=== PATIENT | male | born 1985 | race Two or more races ===

== ENCOUNTER 2024-09-21 13:58 | Outpatient (AMB) | payer MEDICAID, SELFPAY ==
[2024-09-21 14:38] VITALS: BP 123/83; PULSE 76; RESP 18; TEMP 36.6; O2SAT 95; BMI 28.8
--- NOTE | 2024-09-21 14:38 | ACNOTE_ITS ---
Vital Signs 09/21/24 14:38 Height 1.73 m Height Method Stated Weight 86.296 kg Weight Measurement Method Standing Scale BMI 28.8 BP 123/83 Blood Pressure Source Automatic Cuff Blood Pressure Location Left Upper Arm Position Sitting Respiration 18 Pulse 76 Pulse Source Monitor Temp 97.9 F Temp Source Oral Pulse Oximetry (%) 95 Oxygen Delivery Method Room Air Allergies/Meds Allergies & Medications Allergies No Known Allergies Allergy (Verified 09/21/24 14:39) Medication Reconciliation blood-glucose meter (True Metrix Glucose Meter kit) #1 ea 07/13/22 [Rx Confirmed 06/22/24] lancets 32 gauge (Easy Touch Lancets) #100 ea 01/07/24 [Rx Confirmed 06/22/24] pen needle, diabetic 33 gauge x 5/16 (Comfort EZ Pen [place]) #100 ea 01/07/24 [Rx Confirmed 06/22/24] blood-glucose meter,continuous (FreeStyle José 3 [place]) #1 ea 02/04/24 [Rx Confirmed 06/22/24] flash glucose sensor (FreeStyle José 2 Sensor kit) #1 ea 03/03/24 [Rx Confirmed 06/22/24] lancets 28 gauge (Comfort EZ Lancets) #100 ea 03/03/24 [Rx Confirmed 06/22/24] pen needle,diabetic, disp unit 29 gauge x 1/2 , remover and disposal unit #100 ea 03/03/24 [Rx Confirmed 06/22/24] lancets (Accu-Chek Softclix Lancets) #100 ea 04/28/24 [Rx Confirmed 06/22/24] blood sugar diagnostic (True Metrix Glucose Test Strip) #100 ea 06/22/24 [Rx] insulin glargine 100 unit/mL (3 mL) subcutaneous pen (Basaglar KwikPen U-100 Insulin) 15 unit (0.15 mL) subcut QPM diabetes mellitus #15 mL 06/22/24 [Rx] blood-glucose sensor (FreeStyle José 3 Sensor device) #1 ea 09/21/24 [Rx] empagliflozin 25 mg tablet (Jardiance) 25 mg PO QAM 30 days #30 tabs 09/21/24 [Rx] lancets (Accu-Chek Softclix Lancets) #100 ea 09/21/24 [Rx] metformin 1,000 mg 24 hr tablet,extended release (gastric reten.) 1,000 mg PO BID 30 days #60 tabs 09/21/24 [Rx] olanzapine 20 mg tablet 20 mg PO QPM 30 days #30 tabs 09/21/24 [Rx] semaglutide 2 mg/dose (8 mg/3 mL) subcutaneous pen injector (Ozempic) 2 mg (0.75 mL) subcut QWEEK #3 mL 09/21/24 [Rx] sertraline 50 mg tablet 50 mg PO QDAY 30 days #30 tabs 09/21/24 [Rx] MA Intake Visit Data Collection New Patient or Established: Established Patient (seen at [facility] within 3 years) Seen by Clinical Staff ONLY (RN/MA): No Pain Present Currently: No Pain scale:: 0 PCP or OBGYN visit in last 3 months: Yes Do You Feel Safe at Home: Yes Authorities Contacted: N/A Smoking Status Smoking Status: Former smoker Immunization / Flu Flu Vaccine in the Last 12 Months: No Flu Vaccine Exclusion Criteria: No Exclusion Criteria Past Medical History Past Medical History CARDIAC: Negative Congestive Heart Failure RESPIRATORY: Positive Asthma; Negative Chronic Obstructive Pulmonary Disease (COPD) GENITOURINARY: Negative Renal Disease ENDOCRINE: Positive Diabetes Mellitus Type 2; Negative Diabetes Mellitus Type 1 PSYCHO/SOCIAL: Positive Schizophrenia Social History SMOKING STATUS: Smoking status: Former smoker LIVES WITH: Lives With: Family Patient Portal Questionairamparo Social History Tobacco History Smoking Status: Former smoker Domestic Abuse History Do You Feel Safe at Home: Yes Review of Systems Report any current symptoms Only answer those that you have currently: Past Medical History Past Medical History Have you ever been diagnosed with any of the following: Cardiology Problems Congestive Heart Failure: No Respiratory Problems Chronic Obstructive Pulmonary Disease (COPD): No Asthma: Yes Genital/Urinary Problems Renal Disease: No Endocrine Problems Diabetes Mellitus Type 1: No Diabetes Mellitus Type 2: Yes Psychologic Problems Schizophrenia: Yes History of Present Illness HPI Narrative Mr. Esteban Del Real is a 38 year old male with past medical history of schizophrenia, and insulin dependant type 2 diabetes mellitus who presents to the [facility]. 06/22/24 : Patient f/u for insulin dependent mellitus [10.6] and schizophrenia. His fasting blood glucose ranged from 86-205 and 2 hour post-prandial ranged from 95-185. He denies any hypoglycemic symptoms, SOB, chest pain, dizziness, weight loss/gain, urinary symptoms or change in bowel habits. His meds were refilled and lancets refilled. F/U in 3 months. 04/28/24: The patient is here for f/u on his DM2 management. He brought his BS log and revealed BS between 90-200. He reported doing well and denied any neutrogl ycopenic symptoms, his tiredness has improved, denies any urinary or bowel habit changes. His Ozempic was increased to 2mg weekly, metformin increased to 1000mg ER BID and insulin decreased to 15U glarzine at night. His lancets were refilled. F/u in 8 weeks. 03/17/2024: The patient is here for f/u on his DM2 management. His blood sugar has been in the range of 140-250. He denied any neuroglycopenic symptoms, but admitted feeling tired and increased urinary frequency, but no urgency or burning. He was explained this could have been because of use of Jardiance. He was recommended to take his BS at least 3 times a day and maintain a log. We will cut down on his glargine to 25 units nightly and increase the dose of Ozempic from 0.5 to 1mg. 03/03/2024: The patient presented for f/u for his DM2 management. He reported doing well. He is compliant with his medications and takes his BS in the evening which has been in the range of 200's, occasionally in 300's. His A1c level has improved from 11.0 to 10.6. His C-Peptide level is 4.3 and liver enzymes are still elevated mildly. His FBS is 264 which was 308 before. His Metformin ER was escalated to 500mg twice daily and added on Ozempic 0.5mg weekly. Lybre 2 ordered. He denied any fever, chills, nausea, vomiting, headache, chest pain, SOB, abdominal pain, or any changes in bowel or bladder habit. Patient was recommended to f/u in 2 weeks. 02/04/2024: The patient presented for the regular follow up on his DM2 control. He reported taking his BS everyday in the evening, and has been in 200's to 300's. He is not aware of his previous A1c level. He was also requesting to switch his insulin to oral form if possible. He was started on Jardiance 25mg daily and ordered refill for lancet. Labs were ordered for CMP, A1c and c-peptide, and was recommended to f/u in 2 weeks. He denied any fever, chills, nausea, vomiting, headache, chest pain, SOB, abdominal pain, or any changes in bowel or bladder habit. 09/13/2024: Presented for requesting clearance for a dental surgical extraction of a maxillary upper molar. Patient notes he has been experiencing pain at the site of the infected molar which needs to be extracted as per patient's dentist who is requesting clearance for the procedure. Patient noted his started amoxicillin approximately 1 week prior which has helped reduce his pain significantly. Patient's vitals WNL. Patient endorses medication compliance with insulin regimen for IDDM and olanzapine for Schizophrenia. 09/21/2024 Patient reports good compliance with his insulin and psychiatric medications. His blood sugars at home are between 180s?230s. Patient on insulin glargine 15 units at bedtime. Will order an HbA1c and schedule a telehealth appointment with patient next week. Will titrate his insulin glargine based on HbA1c results. Objective/Exam Narrative Physical exam: Constitutional Alert, oriented x 3 and comfortable HEENT Vision grossly intact. Patent nares. Trachea midline Respiratory Chest normal on inspection and clear auscultation bilaterally Cardiovascular S1 and S2 audible, RRR. No murmurs carotid bruit. No gross JVD. Abdominal Soft and non tender to palpation in all quadrants. BS + Genitourinary No bladder tenderness, no flank pain. Normal to palpation Musculoskeletal Extremities tone within normal limits. No LE edema. Neurological CN II - XII grossly intact. Extremity motor and sensation grossly intact. Feet inspection done, no ulcers or fissures Skin Warm, dry and intact. No apparent lesions. 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 Patient on insulin glargine 15 units at bedtime. Will order an HbA1c and schedule a telemetry appointment with patient next week. Will titrate his insulin glargine based on HbA1c results. Plan: -Continue Metformin 1g po BID -Continue Jardiance 25 mg po QD -Continue Ozempic 2 mg po Q weekly ? Continue insulin glargine 15 units at bedtime ?Ordered repeat HbA1c ? Will schedule a televisit for next week to review patient's HbA1c and determine titration of insulin glargine (2) Schizophrenia: Status: Chronic Qualifiers: Schizophrenia type: undifferentiated schizophrenia Qualified Code(s): F20.3 - Undifferentiated schizophrenia Assessment & Plan: Patient has good affect and denies any visual/auditory/sensory hallucinations. Well controlled on current medication regime. Plan: -refilled Olanzapine 20 mg po HS -refilled Sertraline 50 mg po QD Plan Plan of care discussed with Attending Dr. Timothy Chilel MD PGY 1 Additional Assessment Attending note: I, Sai Aguirre MD, attest that I was physically present for the fa[place]in portions of the service and evaluated the patient with the resident and I reviewed and discussed the case with the resident and agree with the resident's findings and plans of care as documented above. Diabetes self-care reviewed including diet, exercise, footcare, eye care, home insulin, home glucose testing. We will update labs today. Patient reports medication compliance. Blood pressure under good control. Weight fairly stable. Sai Aguirre MD Physician Billing Established Patient Established Patient: E/M Level 3-CPT 17278 Office Procedures [facility] Level of Care Nursing/Assessment Patient Status: Established Patient Nursing Assessment/Reassessment: Medication Reconciliation, Update PMH in EMR and Vital Signs Coordination of Care: Complex Care and Chronic Disease 1-5, Education Complex Pt/Fam and Staff clarify orders Established Patient Charge Established Patient Point Assignment: 85 Established Patient Point Charge: EP Level 3 (80-115)
== END 2024-09-21 15:51 | disposition home or self-care (01) ==
PROVIDERS: Supervising Provider Internal Medicine
DX: E11.9 Type 2 diabetes mellitus without complications (principal); Z79.4 Long term (current) use of insulin; F20.9 Schizophrenia, unspecified; Z79.899 Other long term (current) drug therapy
CPT/HCPCS: 99213; G0463

== ENCOUNTER 2025-01-04 14:01 | Outpatient (AMB) | payer MEDICAID, SELFPAY ==
[2025-01-04 14:09] VITALS: BP 127/86; PULSE 88; RESP 16; TEMP 36.5; O2SAT 94; BMI 28.3
--- NOTE | 2025-01-04 14:09 | ACNOTE_ITS ---
Vital Signs 01/04/25 14:09 Height 1.73 m Height Method Stated Weight 84.822 kg Weight Measurement Method Standing Scale BMI 28.3 BP 127/86 H Blood Pressure Source Automatic Cuff Blood Pressure Location Left Upper Arm Position Sitting Respiration 16 Pulse 88 Pulse Source Monitor Temp 97.7 F Temp Source Temporal Artery Scan Pulse Oximetry (%) 94 L Oxygen Delivery Method Room Air Allergies/Meds Allergies & Medications Allergies No Known Allergies Allergy (Verified 01/04/25 14:10) Medication Reconciliation blood-glucose meter (True Metrix Glucose Meter kit) #1 ea 07/13/22 [Rx Confirmed 01/04/25] blood-glucose meter,continuous (FreeStyle José 3 [place]) #1 ea 02/04/24 [Rx Confirmed 01/04/25] flash glucose sensor (FreeStyle José 2 Sensor kit) #1 ea 03/03/24 [Rx Confirmed 01/04/25] blood-glucose sensor (FreeStyle José 3 Sensor device) #1 ea 09/21/24 [Rx Confirmed 01/04/25] semaglutide 2 mg/dose (8 mg/3 mL) subcutaneous pen injector (Ozempic) 2 mg (0.75 mL) subcut QWEEK #3 mL 09/21/24 [Rx Confirmed 01/04/25] blood sugar diagnostic (True Metrix Glucose Test Strip) #100 ea 01/04/25 [Rx] empagliflozin 25 mg tablet (Jardiance) 25 mg PO QAM 30 days #30 tabs 01/04/25 [Rx] insulin degludec 200 unit/mL (3 mL) subcutaneous pen 20 unit (0.1 mL) subcut QHS #9 mL 01/04/25 [Rx] lancets (Accu-Chek Softclix Lancets) #100 ea 01/04/25 [Rx] metformin 1,000 mg 24 hr tablet,extended release (gastric reten.) 1,000 mg PO BID 30 days #60 tabs 01/04/25 [Rx] olanzapine 20 mg tablet 20 mg PO QPM 30 days #30 tabs 01/04/25 [Rx] pen needle, diabetic 33 gauge x 5/16 (Comfort EZ Pen [place]) #100 ea 01/04/25 [Rx] sertraline 50 mg tablet 50 mg PO QDAY 30 days #30 tabs 01/04/25 [Rx] MA Intake Visit Data Collection New Patient or Established: Established Patient (seen at [facility] within 3 years) Seen by Clinical Staff ONLY (RN/MA): No Pain Present Currently: No Pain scale:: 0 Pain Scale Used: Allison-Vazquez/Numerical Ordinary Seaman Required: No PCP or OBGYN visit in last 3 months: No Hx Now: No Do You Feel Safe at Home: Yes Authorities Contacted: N/A Smoking Status Smoking Status: Former smoker Immunization / Flu Flu Vaccine in the Last 12 Months: No Flu Vaccine Exclusion Criteria: No Exclusion Criteria Past Medical History Past Medical History CARDIAC: Negative Congestive Heart Failure RESPIRATORY: Positive Asthma; Negative Chronic Obstructive Pulmonary Disease (COPD) GENITOURINARY: Negative Renal Disease ENDOCRINE: Positive Diabetes Mellitus Type 2; Negative Diabetes Mellitus Type 1 PSYCHO/SOCIAL: Positive Schizophrenia Social History SMOKING STATUS: Smoking status: Former smoker LIVES WITH: Lives With: Family Patient Portal Questionaires Social History Tobacco History Smoking Status: Former smoker Domestic Abuse History Do You Feel Safe at Home: Yes Review of Systems Report any current symptoms Only answer those that you have currently: Past Medical History Past Medical History Have you ever been diagnosed with any of the following: Cardiology Problems Congestive Heart Failure: No Respiratory Problems Chronic Obstructive Pulmonary Disease (COPD): No Asthma: Yes Genital/Urinary Problems Renal Disease: No Endocrine Problems Diabetes Mellitus Type 1: No Diabetes Mellitus Type 2: Yes Psychologic Problems Schizophrenia: Yes History of Present Illness HPI Narrative Mr. Esteban Del Real is a 38 year old male with past medical history of schizophrenia, and insulin dependant type 2 diabetes mellitus who presents to the [facility]. 06/22/24 : Patient f/u for insulin dependent mellitus [10.6] and schizophrenia. His fasting blood glucose ranged from 86-205 and 2 hour post-prandial ranged from 95-185. He denies any hypoglycemic symptoms, SOB, chest pain, dizziness, weight loss/gain, urinary symptoms or change in bowel habits. His meds were refilled and lancets refilled. F/U in 3 months. 04/28/24: The patient is here for f/u on his DM2 management. He brought his BS log and revealed BS between 90-200. He reported doing well and denied any neutroglycopenic symptoms, his tiredness has improved, denies any urinary or bowel habit changes. His Ozempic was increased to 2mg weekly, metformin increased to 1000mg ER BID and insulin decreased to 15U glarzine at night. His lancets were refilled. F/u in 8 weeks. 03/17/2024: The patient is here for f/u on his DM2 management. His blood sugar has been in the range of 140-250. He denied any neuroglycopenic symptoms, but admitted feeling tired and increased urinary frequency, but no urgency or burning. He was explained this could have been because of use of Jardiance. He was recommended to take his BS at least 3 times a day and maintain a log. We will cut down on his glargine to 25 units nightly and increase the dose of Ozempic from 0.5 to 1mg. 03/03/2024: The patient presented for f/u for his DM2 management. He reported doing well. He is compliant with his medications and takes his BS in the evening which has been in the range of 200's, occasionally in 300's. His A1c level has improved from 11.0 to 10.6. His C-Peptide level is 4.3 and liver enzymes are still elevated mildly. His FBS is 264 which was 308 before. His Metformin ER was escalated to 500mg twice daily and added on Ozempic 0.5mg weekly. Lybre 2 ordered. He denied any fever, chills, nausea, vomiting, headache, chest pain, SOB, abdominal pain, or any changes in bowel or bladder habit. Patient was recommended to f/u in 2 weeks. 02/04/2024: The patient presented for the regular follow up on his DM2 control. He reported taking his BS everyday in the evening, and has been in 200's to 300's. He is not aware of his previous A1c level. He was also requesting to switch his insulin to oral form if possible. He was started on Jardiance 25mg daily and ordered refill for lancet. Labs were ordered for CMP, A1c and c-peptide, and was recommended to f/u in 2 weeks. He denied any fever, chills, nausea, vomiting, headache, chest pain, SOB, abdominal pain, or any changes in bowel or bladder habit. 09/13/2024: Presented for requesting clearance for a dental surgical extraction of a maxillary upper molar. Patient notes he has been experiencing pain at the site of the infected molar which needs to be extracted as per patient's dentist who is requesting clearance for the procedure. Patient noted his started amoxicillin approximately 1 week prior which has helped reduce his pain significantly. Patient's vitals WNL. Patient endorses medication compliance with insulin regimen for IDDM and olanzapine for Schizophrenia. 09/21/2024 Patient reports good compliance with his insulin and psychiatric medications. His blood sugars at home are between 180s?230s. Patient on insulin glargine 15 units at bedtime. Will order an HbA1c and schedule a telehealth appointment with patient next week. Will titrate his insulin glargine based on HbA1c results. 01/04/2025 Patient reports compliance with his psychiatric medication as well as insulin. His fasting blood glucose for the past month between 108 and 157. Will discontinue insulin Basaglar 15 units and start on insulin degludec 20 units at bedtime. HbA1c from September 2024 6.5%. For the past week patient reported 2 episodes of vomiting unrelated to consumption of food. Described as liquid, no hematemesis, no bile, no coffee- ground vomit. Patient was on Ozempic for the past 5 months and this is the first reported side effect. Will hold Ozempic for 1 week to see if symptoms improve. Will consider decreasing dose if vomiting is due to Ozempic Will follow-up with patient 2 months with repeat CBC, BMP and HbA1c. Objective/Exam Narrative Physical exam: Constitutional Alert, oriented x 3 and comfortable HEENT Vision grossly intact. Patent nares. Trachea midline Respiratory Chest normal on inspection and clear auscultation bilaterally Cardiovascular S1 and S2 audible, RRR. No murmurs carotid bruit. No gross JVD. Abdominal Soft and non tender to palpation in all quadrants. BS + Genitourinary No bladder tenderness, no flank pain. Normal to palpation Musculoskeletal Extremities tone within normal limits. No LE edema. Neurological CN II - XII grossly intact. Extremity motor and sensation grossly intact. Skin Warm, dry and intact. No apparent lesions. Psychiatric Patient has good affect, is cooperative Assessment & Plan Diagnosis / Problem List (1) Schizophrenia: Status: Chronic Qualifiers: Schizophrenia type: undifferentiated schizophrenia Qualified Code(s): F20.3 - Undifferentiated schizophrenia Assessment & Plan: Patient reports good compliance with his medication. Sometimes he reports depressed mood but denies any suicidal or homicidal ideations. Patient also denies any visual, auditory or tactile hallucinations. Patient states that his medication helps with his mood and he also has people to talk to if he needs to. Patient counseled if any worsening of symptoms to either dial 911, call his PCP or present to the emergency department. Plan: Plan: ? Continue olanzapine 20 Mg p.o. at bedtime ? Continue sertraline 50 Mg p.o. at bedtime (2) Diabetes: Status: Chronic Qualifiers: Diabetes mellitus type: type 2 Diabetes mellitus mcc insulin use: with termite control service representative use Diabetes mellitus complication status: without complication Qualified Code(s): E11.9 - Type 2 diabetes mellitus without complications; Z79.4 - marine oil terminal superintendent (current) use of insulin Assessment & Plan: Patient reports compliance with his psychiatric medication as well as insulin. His fasting blood glucose for the past month between 108 and 157. Will discontinue insulin Basaglar 15 units and start on insulin degludec 20 units at bedtime. HbA1c from September 2024 6.5%. Plan: Plan: ? Started on Insulin degludec 20 units at bedtime ? Continue metformin 1 g p.o. twice daily ? Continue empagliflozin 25 Mg p.o. daily ? Hold Ozempic for 1 week ? Televisit in 1 week ? Follow-up appointment in 2 months with labs (3) Vomiting: Status: Acute Qualifiers: Vomiting type: unspecified Nausea presence: with nausea Qualified Code(s): R11.2 - Nausea with vomiting, unspecified Assessment & Plan: For the past week patient reported 2 episodes of vomiting unrelated to consumption of food. Described as liquid, no hematemesis, no bile, no coffee- ground vomit. Patient was on Ozempic for the past 5 months and this is the first reported side effect. Will hold Ozempic for 1 week to see if symptoms improve. Will consider decreasing dose if vomiting is due to Ozempic Plan: Plan: ? Hold Ozempic for 1 week to monitor for improvement Plan Plan of care discussed with Attending Dr. Timothy Chilel MD PGY [address] [facility] Level of Care Nursing/Assessment Patient Status: Established Patient Nursing Assessment/Reassessment: Medication Reconciliation, Update PMH in EMR and Vital Signs Coordination of Care: Complex Care and Chronic Disease 1-5, Consent,records obtained, informed consent, Education Simp Pt/Fam, Lab and Imaging orders and Staff clarify orders Established Patient Charge Established Patient Point Assignment: 100 Established Patient Point Charge: EP Level 3 (80-115)
== END 2025-01-04 14:29 | disposition home or self-care (01) ==
LOC: HODAHC 14:01
PROVIDERS: Supervising Provider Internal Medicine
DX: F20.9 Schizophrenia, unspecified (principal); E11.9 Type 2 diabetes mellitus without complications; Z79.4 Long term (current) use of insulin; Z79.84 Long term (current) use of oral hypoglycemic drugs; R11.2 Nausea with vomiting, unspecified
CPT/HCPCS: 99213; G0463

== ENCOUNTER 2025-01-11 14:42 | Outpatient (AMB) | payer MEDICAID, SELFPAY ==
--- NOTE | 2025-01-11 14:43 | PD.RESCLINIC ---
Allergies/Meds Allergies & Medications Allergies No Known Allergies Allergy (Verified 01/11/25 14:43) Medication Reconciliation blood-glucose meter (True Metrix Glucose Meter kit) #1 ea 07/13/22 [Rx Confirmed 01/11/25] blood sugar diagnostic (True Metrix Glucose Test Strip) #100 ea 01/04/25 [Rx Confirmed 01/11/25] empagliflozin 25 mg tablet (Jardiance) 25 mg PO QAM 30 days #30 tabs 01/04/25 [Rx Confirmed 01/11/25] insulin degludec 200 unit/mL (3 mL) subcutaneous pen 20 unit (0.1 mL) subcut QHS #9 mL 01/04/25 [Rx Confirmed 01/11/25] lancets (Accu-Chek Softclix Lancets) #100 ea 01/04/25 [Rx Confirmed 01/11/25] metformin 1,000 mg 24 hr tablet,extended release (gastric reten.) 1,000 mg PO BID 30 days #60 tabs 01/04/25 [Rx Confirmed 01/11/25] olanzapine 20 mg tablet 20 mg PO QPM 30 days #30 tabs 01/04/25 [Rx Confirmed 01/11/25] pen needle, diabetic 33 gauge x 5/16 (Comfort EZ Pen [place]) #100 ea 01/04/25 [Rx Confirmed 01/11/25] sertraline 50 mg tablet 50 mg PO QDAY 30 days #30 tabs 01/04/25 [Rx Confirmed 01/11/25] blood-glucose meter,continuous (FreeStyle José 3 [place]) #1 ea 01/11/25 [Rx Confirmed 01/11/25] blood-glucose sensor (FreeStyle José 3 Sensor device) #1 ea 01/11/25 [Rx Confirmed 01/11/25] lancets 30 gauge (True Comfort Lancet) #100 ea 01/11/25 [Rx Confirmed 01/11/25] tirzepatide 2.5 mg/0.5 mL subcutaneous pen injector (Valentine) 2.5 mg (0.5 mL) subcut QWEEK GI side effects from Ozempic 2 months #4.5 mL 01/11/25 [Rx Confirmed 01/11/25] ME Intake Visit Data Collection New Patient or Established: Established Patient (seen at [facility] within 3 years) Seen by Clinical Staff ONLY (RN/MA): No Pain Present Currently: No Pain scale:: 0 Pain Scale Used: Allison-Vazquez/Mayda Benefits Administrator Required: No PCP or OBGYN visit in last 3 months: No Hx Now: No Do You Feel Safe at Home: Yes Authorities Contacted: N/A Smoking Status Smoking Status: Former smoker For Televisit only Telemed Video/Phone Visit: Yes Verbal consent obtained for Telemed visit?: Yes Verbal Consent witness name: priya bajwa ma Telemed Video/Phone visit w/Clinical Staff: 21-30 min Immunization / Flu Flu Vaccine in the Last 12 Months: No Flu Vaccine Exclusion Criteria: No Exclusion Criteria Past Medical History Past Medical History CARDIAC: Negative Congestive Heart Failure RESPIRATORY: Positive Asthma; Negative Chronic Obstructive Pulmonary Disease (COPD) GENITOURINARY: Negative Renal Disease ENDOCRINE: Positive Diabetes Mellitus Type 2; Negative Diabetes Mellitus Type 1 PSYCHO/SOCIAL: Positive Schizophrenia Social History SMOKING STATUS: Smoking status: Former smoker LIVES WITH: Lives With: Family Patient Portal Questionaires Social History Tobacco History Smoking Status: Former smoker Domestic Abuse History Do You Feel Safe at Home: Yes Review of Systems Report any current symptoms Only answer those that you have currently: Past Medical History Past Medical History Have you ever been diagnosed with any of the following: Cardiology Problems Congestive Heart Failure: No Respiratory Problems Chronic Obstructive Pulmonary Disease (COPD): No Asthma: Yes Genital/Urinary Problems Renal Disease: No Endocrine Problems Diabetes Mellitus Type 1: No Diabetes Mellitus Type 2: Yes Psychologic Problems Schizophrenia: Yes History of Present Illness HPI Narrative Mr. Esteban Del Real is a 38 year old male with past medical history of schizophrenia, and insulin dependant type 2 diabetes mellitus who presents to the [facility]. 06/22/24 : Patient f/u for insulin dependent mellitus [10.6] and schizophrenia. His fasting blood glucose ranged from 86-205 and 2 hour post-prandial ranged from 95-185. He denies any hypoglycemic symptoms, SOB, chest pain, dizziness, weight loss/gain, urinary symptoms or change in bowel habits. His meds were refilled and lancets refilled. F/U in 3 months. 04/28/24: The patient is here for f/u on his DM2 management. He brought his BS log and revealed BS between 90-200. He reported doing well and denied any neutroglycopenic symptoms, his tiredness has improved, denies any urinary or bowel habit changes. His Ozempic was increased to 2mg weekly, metformin increased to 1000mg ER BID and insulin decreased to 15U glarzine at night. His lancets were refilled. F/u in 8 weeks. 03/17/2024: The patient is here for f/u on his DM2 management. His blood sugar has been in the range of 140-250. He denied any neuroglycopenic symptoms, but admitted feeling tired and increased urinary frequency, but no urgency or burning. He was explained this could have been because of use of Jardiance. He was recommended to take his BS at least 3 times a day and maintain a log. We will cut down on his glargine to 25 units nightly and increase the dose of Ozempic from 0.5 to 1mg. 03/03/2024: The patient presented for f/u for his DM2 management. He reported doing well. He is compliant with his medications and takes his BS in the evening which has been in the range of 200's, occasionally in 300's. His A1c level has improved from 11.0 to 10.6. His C-Peptide level is 4.3 and liver enzymes are still elevated mildly. His FBS is 264 which was 308 before. His Metformin ER was escalated to 500mg twice daily and added on Ozempic 0.5mg weekly. Lybre 2 ordered. He denied any fever, chills, nausea, vomiting, headache, chest pain, SOB, abdominal pain, or any changes in bowel or bladder habit. Patient was recommended to f/u in 2 weeks. 02/04/2024: The patient presented for the regular follow up on his DM2 control. He reported taking his BS everyday in the evening, and has been in 200's to 300's. He is not aware of his previous A1c level. He was also requesting to switch his insulin to oral form if possible. He was started on Jardiance 25mg daily and ordered refill for lancet. Labs were ordered for CMP, A1c and c-peptide, and was recommended to f/u in 2 weeks. He denied any fever, chills, nausea, vomiting, headache, chest pain, SOB, abdominal pain, or any changes in bowel or bladder habit. 09/13/2024: Presented for requesting clearance for a dental surgical extraction of a maxillary upper molar. Patient notes he has been experiencing pain at the site of the infected molar which needs to be extracted as per patient's dentist who is requesting clearance for the procedure. Patient noted his started amoxicillin approximately 1 week prior which has helped reduce his pain significantly. Patient's vitals WNL. Patient endorses medication compliance with insulin regimen for IDDM and olanzapine for Schizophrenia. 09/21/2024 Patient reports good compliance with his insulin and psychiatric medications. His blood sugars at home are between 180s?230s. Patient on insulin glargine 15 units at bedtime. Will order an HbA1c and schedule a telehealth appointment with patient next week. Will titrate his insulin glargine based on HbA1c results. 01/04/2025 Patient reports compliance with his psychiatric medication as well as insulin. His fasting blood glucose for the past month between 108 and 157. Will discontinue insulin Basaglar 15 units and start on insulin degludec 20 units at bedtime. HbA1c from September 2024 6.5%. For the past week patient reported 2 episodes of vomiting unrelated to consumption of food. Described as liquid, no hematemesis, no bile, no coffee-ground vomit. Patient was on Ozempic for the past 5 months and this is the first reported side effect. Will hold Ozempic for 1 week to see if symptoms improve. Will consider decreasing dose if vomiting is due to Ozempic Will follow-up with patient 2 months with repeat CBC, BMP and HbA1c. 01/11/2025 Telemedicine follow-up: Since last visit patient's Ozempic was held due to GI side effects of nausea and vomiting. Patient now reports no further episodes of nausea or vomiting. Will discontinue Ozempic and start patient on Mounjaro 2.5 mg SC weekly. Will see patient in next 2 months with repeat labs. Assessment & Plan Diagnosis / Problem List (1) Diabetes: Status: Chronic Qualifiers: Diabetes mellitus complication status: without complication Diabetes mellitus senior care insulin use: with terminal operations supervisor use Diabetes mellitus type: type 2 Qualified Code(s): E11.9 - Type 2 diabetes mellitus without complications; Z79.4 - [facility] (current) use of insulin Assessment & Plan: Patient reports compliance with his psychiatric medication as well as insulin. His fasting blood glucose for the past month between 108 and 157. Will discontinue insulin Basaglar 15 units and start on insulin degludec 20 units at bedtime. HbA1c from September 2024 6.5%. Plan: Plan: ? Continue Insulin degludec 20 units at bedtime ? Continue metformin 1 g p.o. twice daily ? Continue empagliflozin 25 Mg p.o. daily - Discontinued Ozempic due to GI side effects. - Started on Mounjaro 2.5mg sc weekly ? Follow-up appointment in 2 months with labs (2) Vomiting: Status: Resolved Qualifiers: Nausea presence: with nausea Vomiting type: unspecified Qualified Code(s): R11.2 - Nausea with vomiting, unspecified Assessment & Plan: Ozempic was held for 1 week and patient's vomiting completely resolved. Switched patient to Mounjaro. Plan Plan of care discussed with Attending Dr. Timothy Chilel MD PGY 1 Additional Assessment Internal Medicine Attending Note: Case discussed with and agree with note and management plan of Resident Physician as per Resident's Note above. Issues of concern for present visit are as follows: Follow-up visit completed via telehealth. Ozempic on hold due to episodes of nausea and vomiting. These have resolved. We will make change to Mounjaro 2.5 mg subcutaneous weekly. We will see how this is tolerated. Blood sugars on previous labs were at goal. Sai Aguirre MD Physician Billing Established Patient Established Patient: E/M Level 2-CPT 30040 Office Procedures [facility] Level of Care Nursing/Assessment Patient Status: Established Patient Nursing Assessment/Reassessment: Medication Reconciliation and Update PMH in EMR Coordination of Care: Complex Care and Chronic Disease 1-5, Consent,records obtained, informed consent, Education Simp Pt/Fam and Staff clarify orders Established Patient Charge Established Patient Point Assignment: 70 Telehealth Telemed Phone/Video with patient at home & Dr,PA,OPERATIONS SUPERINTENDENT: Yes
== END 2025-01-11 16:08 | disposition home or self-care (01) ==
LOC: HODAHC 14:42
PROVIDERS: Supervising Provider Internal Medicine
DX: E11.9 Type 2 diabetes mellitus without complications (principal); Z79.4 Long term (current) use of insulin; Z79.84 Long term (current) use of oral hypoglycemic drugs
CPT/HCPCS: 99212; G0463

== ENCOUNTER 2025-03-08 13:13 | Outpatient (AMB) | payer MEDICAID, SELFPAY ==
[2025-03-08 13:25] VITALS: BP 126/78; PULSE 61; RESP 18; TEMP 36.2; O2SAT 96; BMI 28.4
--- NOTE | 2025-03-08 13:25 | PD.RESCLINIC ---
Vital Signs 03/08/25 13:25 Height 1.73 m Height Method Stated Weight 85.049 kg Weight Measurement Method Standing Scale BMI 28.4 BP 126/78 Blood Pressure Source Automatic Cuff Blood Pressure Location Right Upper Arm Position Sitting Respiration 18 Pulse 61 Pulse Source Monitor Temp 97.2 F Temp Source Temporal Artery Scan Pulse Oximetry (%) 96 Oxygen Delivery Method Room Air Allergies/Meds Allergies & Medications Allergies No Known Allergies Allergy (Verified 03/09/25 08:45) Medication Reconciliation blood-glucose meter (True Metrix Glucose Meter kit) #1 ea 07/13/22 [Rx Confirmed 03/09/25] empagliflozin 25 mg tablet (Jardiance) 25 mg PO QAM 30 days #30 tabs 01/04/25 [Rx Confirmed 03/09/25] insulin degludec 200 unit/mL (3 mL) subcutaneous pen 20 unit (0.1 mL) subcut QHS #9 mL 01/04/25 [Rx Confirmed 03/09/25] lancets (Accu-Chek Softclix Lancets) #100 ea 01/04/25 [Rx Confirmed 03/09/25] metformin 1,000 mg 24 hr tablet,extended release (gastric reten.) 1,000 mg PO BID 30 days #60 tabs 01/04/25 [Rx Confirmed 03/09/25] olanzapine 20 mg tablet 20 mg PO QPM 30 days #30 tabs 01/04/25 [Rx Confirmed 03/09/25] sertraline 50 mg tablet 50 mg PO QDAY 30 days #30 tabs 01/04/25 [Rx Confirmed 03/09/25] blood-glucose sensor (FreeStyle José 3 Sensor device) #1 ea 01/11/25 [Rx Confirmed 03/09/25] blood sugar diagnostic (True Metrix Glucose Test Strip) #100 ea 03/08/25 [Rx Confirmed 03/09/25] blood-glucose,career technical education teacher,cont (FreeStyle José 3 [place]) #1 ea 03/08/25 [Rx Confirmed 03/09/25] lancets 30 gauge (True Comfort Lancet) #100 ea 03/08/25 [Rx Confirmed 03/09/25] pen needle, diabetic 33 gauge x 5/16 (Comfort EZ Pen [place]) #100 ea 03/08/25 [Rx Confirmed 03/09/25] tirzepatide 2.5 mg/0.5 mL subcutaneous pen injector (Mounjaro) 2.5 mg (0.5 mL) subcut QWEEK GI side effects from Ozempic 1 month #2.5 mL 03/08/25 [Rx Confirmed 03/09/25] MA Intake Visit Data Collection New Patient or Established: Established Patient (seen at [facility] within 3 years) Seen by Clinical Staff ONLY (RN/MA): No Pain Present Currently: No Pain scale:: 0 Pain Scale Used: Allison-Vazquez/Numerical Service Inspector Required: No PCP or OBGYN visit in last 3 months: Yes Hx Now: No Do You Feel Safe at Home: Yes Authorities Contacted: N/A Smoking Status Smoking Status: Former smoker Immunization / Flu Flu Vaccine in the Last 12 Months: Yes Flu Vaccine Exclusion Criteria: Already Received Past Medical History Past Medical History CARDIAC: Negative Congestive Heart Failure RESPIRATORY: Positive Asthma; Negative Chronic Obstructive Pulmonary Disease (COPD) GENITOURINARY: Negative Renal Disease ENDOCRINE: Positive Diabetes Mellitus Type 2; Negative Diabetes Mellitus Type 1 PSYCHO/SOCIAL: Positive Schizophrenia Social History SMOKING STATUS: Smoking status: Former smoker LIVES WITH: Lives With: Family Patient Portal Questionaires Social History Tobacco History Smoking Status: Former smoker Domestic Abuse History Do You Feel Safe at Home: Yes Review of Systems Report any current symptoms Only answer those that you have currently: Past Medical History Past Medical History Have you ever been diagnosed with any of the following: Cardiology Problems Congestive Heart Failure: No Respiratory Problems Chronic Obstructive Pulmonary Disease (COPD): No Asthma: Yes Genital/Urinary Problems Renal Disease: No Endocrine Problems Diabetes Mellitus Type 1: No Diabetes Mellitus Type 2: Yes Psychologic Problems Schizophrenia: Yes History of Present Illness HPI Narrative Mr. Esteban Del Real is a 38 year old male with past medical history of schizophrenia, and insulin dependant type 2 diabetes mellitus who presents to the [facility]. 06/22/24 : Patient f/u for insulin dependent mellitus [10.6] and schizophrenia. His fasting blood glucose ranged from 86-205 and 2 hour post-prandial ranged from 95-185. He denies any hypoglycemic symptoms, SOB, chest pain, dizziness, weight loss/gain, urinary symptoms or change in bowel habits. His meds were refilled and lancets refilled. F/U in 3 months. 04/28/24: The patient is here for f/u on his DM2 management. He brought his BS log and revealed BS between 90-200. He reported doing well and denied any neutroglycopenic symptoms, his tiredness has improved, denies any urinary or bowel habit changes. His Ozempic was increased to 2mg weekly, metformin increased to 1000mg ER BID and insulin decreased to 15U glarzine at night. His lancets were refilled. F/u in 8 weeks. 03/17/2024: The patient is here for f/u on his DM2 management. His blood sugar has been in the range of 140-250. He denied any neuroglycopenic symptoms, but admitted feeling tired and increased urinary frequency, but no urgency or burning. He was explained this could have been because of use of Jardiance. He was recommended to take his BS at least 3 times a day and maintain a log. We will cut down on his glargine to 25 units nightly and increase the dose of Ozempic from 0.5 to 1mg. 03/03/2024: The patient presented for f/u for his DM2 management. He reported doing well. He is compliant with his medications and takes his BS in the evening which has been in the range of 200's, occasionally in 300's. His A1c level has improved from 11.0 to 10.6. His C-Peptide level is 4.3 and liver enzymes are still elevated mildly. His FBS is 264 which was 308 before. His Metformin ER was escalated to 500mg twice daily and added on Ozempic 0.5mg weekly. Lybre 2 ordered. He denied any fever, chills, nausea, vomiting, headache, chest pain, SOB, abdominal pain, or any changes in bowel or bladder habit. Patient was recommended to f/u in 2 weeks. 02/04/2024: The patient presented for the regular follow up on his DM2 control. He reported taking his BS everyday in the evening, and has been in 200's to 300's. He is not aware of his previous A1c level. He was also requesting to switch his insulin to oral form if possible. He was started on Jardiance 25mg daily and ordered refill for lancet. Labs were ordered for CMP, A1c and c-peptide, and was recommended to f/u in 2 weeks. He denied any fever, chills, nausea, vomiting, headache, chest pain, SOB, abdominal pain, or any changes in bowel or bladder habit. 09/13/2024: Presented for requesting clearance for a dental surgical extraction of a maxillary upper molar. Patient notes he has been experiencing pain at the site of the infected molar which needs to be extracted as per patient's dentist who is requesting clearance for the procedure. Patient noted his started amoxicillin approximately 1 week prior which has helped reduce his pain significantly. Patient's vitals WNL. Patient endorses medication compliance with insulin regimen for IDDM and olanzapine for Schizophrenia. 09/21/2024 Patient reports good compliance with his insulin and psychiatric medications. His blood sugars at home are between 180s?230s. Patient on insulin glargine 15 units at bedtime. Will order an HbA1c and schedule a telehealth appointment with patient next week. Will titrate his insulin glargine based on HbA1c results. 01/04/2025 Patient reports compliance with his psychiatric medication as well as insulin. His fasting blood glucose for the past month between 108 and 157. Will discontinue insulin Basaglar 15 units and start on insulin degludec 20 units at bedtime. HbA1c from September 2024 6.5%. For the past week patient reported 2 episodes of vomiting unrelated to consumption of food. Described as liquid, no hematemesis, no bile, no coffee-ground vomit. Patient was on Ozempic for the past 5 months and this is the first reported side effect. Will hold Ozempic for 1 week to see if symptoms improve. Will consider decreasing dose if vomiting is due to Ozempic Will follow-up with patient 2 months with repeat CBC, BMP and HbA1c. 01/11/2025 Telemedicine follow-up: Since last visit patient's Ozempic was held due to GI side effects of nausea and vomiting. Patient now reports no further episodes of nausea or vomiting. Will discontinue Ozempic and start patient on Mounjaro 2.5 mg SC weekly. Will see patient in next 2 months with repeat labs. 03/08/2025 Patient endorses complete resolution of GI symptoms [vomiting and nausea] since discontinuation of Ozempic. He has not been able to burr picker Mounjaro from his pharmacy due to it requiring prior authorization. Will send prior authorization. Patient needs refills on test strips on lancets. Will send to pharmacy He has not been able to get his routine labs done as yet. Will schedule for a phone appointment next week to review CBC, BMP and HbA1c. Regular in office visit in 1 month. Review of Systems Review of Systems Systems Reviewed: All systems reviewed, normal except as documented Objective/Exam Narrative Physical exam: Constitutional Alert, oriented x 3 and comfortable HEENT Vision grossly intact. Patent nares. Trachea midline Respiratory Chest normal on inspection and clear auscultation bilaterally Cardiovascular S1 and S2 audible, RRR. No murmurs carotid bruit. No gross JVD. Abdominal Soft and non tender to palpation in all quadrants. BS + Genitourinary No bladder tenderness, no flank pain. Normal to palpation Musculoskeletal Extremities tone within normal limits. No LE edema. Neurological CN II - XII grossly intact. Extremity motor and sensation grossly intact. Skin Warm, dry and intact. No apparent lesions. Psychiatric Patient has good affect, is cooperative Assessment & Plan Diagnosis / Problem List (1) Diabetes: Status: Chronic Qualifiers: Diabetes mellitus complication status: without complication Diabetes mellitus terminal gauger supervisor insulin use: with terminal gauger supervisor use Diabetes mellitus type: type 2 Qualified Code(s): E11.9 - Type 2 diabetes mellitus without complications; Z79.4 - joint terminal attack controller (current) use of insulin Assessment & Plan: Patient reports compliance with his psychiatric medication as well as insulin. HbA1c from September 2024 6.5%. Patient endorses complete resolution of GI symptoms [vomiting and nausea] since discontinuation of Ozempic. He has not been able to burr picker Mounjaro from his pharmacy due to it requiring prior authorization. Will send prior authorization. Patient needs refills on test strips on lancets. Will send to pharmacy He has not been able to get his routine labs done as yet. Will schedule for a phone appointment next week to review CBC, BMP and HbA1c. Regular in office visit in 1 month. Plan: Plan: ? Continue Insulin degludec 20 units at bedtime ? Continue metformin 1 g p.o. twice daily ? Continue empagliflozin 25 Mg p.o. daily - Resent Mounjaro 2.5 Mg SC weekly to pharmacy and prior authorization ? Follow-up phone appointment in 1 week to review labs. ? Follow-up appointment in office in 1 month (2) Schizophrenia: Status: Chronic Qualifiers: Schizophrenia type: undifferentiated schizophrenia Qualified Code(s): F20.3 - Undifferentiated schizophrenia Assessment & Plan: Patient reports that he sometimes has depressive symptoms, however he has someone he can talk to. Denies any suicidal or homicidal ideations. Patient had a job interview at [facility] [facility] but was unsuccessful. Continue to encourage patient to apply for more jobs. Plan: Plan: ? Continue sertraline 50 Mg p.o. daily ? Continue olanzapine 20 Mg p.o. every afternoon ? If any suicidal or homicidal ideations or feelings to hurt oneself or others, immediately present to the emergency department. Plan Plan of care discussed with Attending Dr. Timothy Chilel MD PGY 1 Office Procedures [facility] Level of Care Nursing/Assessment Patient Status: Established Patient Nursing Assessment/Reassessment: Medication Reconciliation, Update PMH in EMR and Vital Signs Coordination of Care: Complex Care and Chronic Disease 1-5, Consent,records obtained, informed consent, Education Simp Pt/Fam, Lab and Imaging orders and Staff clarify orders Established Patient Charge Established Patient Point Assignment: 100 Established Patient Point Charge: EP Level 3 (80-115)
== END 2025-03-08 13:59 | disposition home or self-care (01) ==
LOC: HODAHC 13:13
PROVIDERS: Supervising Provider Internal Medicine
DX: E11.9 Type 2 diabetes mellitus without complications (principal); F20.9 Schizophrenia, unspecified; Z79.4 Long term (current) use of insulin
CPT/HCPCS: 99213; G0463

== ENCOUNTER 2025-04-05 13:08 | Outpatient (AMB) | payer MEDICAID, SELFPAY | END 2025-04-05 14:30 | disposition home or self-care (01) | PROVIDERS: Visit Provider Student in an Organized Health Care Education/Training Program | DX: Z53.21 Procedure and treatment not carried out due to patient leaving prior to being seen by health care provider (principal) ==

== ENCOUNTER 2025-05-05 10:17 | Outpatient (AMB) | payer MEDICAID, SELFPAY ==
--- NOTE | 2025-05-05 10:20 | ACNOTE_ITS ---
Allergies/Meds Allergies & Medications Allergies No Known Allergies Allergy (Verified 05/05/25 10:20) Medication Reconciliation blood-glucose meter (True Metrix Glucose Meter kit) #1 ea 07/13/22 [Rx Confirmed 05/05/25] empagliflozin 25 mg tablet (Jardiance) 25 mg PO QAM 30 days #30 tabs 01/04/25 [Rx Confirmed 05/05/25] insulin degludec 200 unit/mL (3 mL) subcutaneous pen 20 unit (0.1 mL) subcut QHS #9 mL 01/04/25 [Rx Confirmed 05/05/25] lancets (Accu-Chek Softclix Lancets) #100 ea 01/04/25 [Rx Confirmed 05/05/25] sertraline 50 mg tablet 50 mg PO QDAY 30 days #30 tabs 01/04/25 [Rx Confirmed 05/05/25] blood-glucose sensor (FreeStyle José 3 Sensor device) #1 ea 01/11/25 [Rx Confirmed 05/05/25] blood sugar diagnostic (True Metrix Glucose Test Strip) #100 ea 03/08/25 [Rx Confirmed 05/05/25] blood-glucose,bank guard,cont (FreeStyle José 3 [place]) #1 ea 03/08/25 [Rx Confirmed 05/05/25] lancets 30 gauge (True Comfort Lancet) #100 ea 03/08/25 [Rx Confirmed 05/05/25] pen needle, diabetic 33 gauge x 5/16 (Comfort EZ Pen [place]) #100 ea 03/08/25 [Rx Confirmed 05/05/25] metformin 1,000 mg 24 hr tablet,extended release (gastric reten.) 1,000 mg PO BID 30 days #60 tabs 05/03/25 [Rx Confirmed 05/05/25] olanzapine 20 mg tablet 20 mg PO QPM 30 days #30 tabs 05/03/25 [Rx Confirmed 05/05/25] tirzepatide 5 mg/0.5 mL subcutaneous pen injector 5 mg (0.5 mL) subcut QWEEK GI side effects from Ozempic 1 month #2.5 mL 05/05/25 [Rx] MA Intake Visit Data Collection New Patient or Established: Established Patient (seen at [facility] within 3 years) Seen by Clinical Staff ONLY (RN/MA): No Pain Present Currently: No Pain scale:: 0 Pain Scale Used: Allison-Vazquez/Numerical Public Health Doctor Required: No PCP or OBGYN visit in last 3 months: No Hx Now: No Do You Feel Safe at Home: Yes Authorities Contacted: N/A Smoking Status Smoking Status: Former smoker For Televisit only Telemed Video/Phone Visit: Yes Verbal consent obtained for Telemed visit?: Yes Verbal Consent witness name: priya bajwa ma Telemed Video/Phone visit w/Clinical Staff: 21-30 min Immunization / Flu Flu Vaccine in the Last 12 Months: No Flu Vaccine Exclusion Criteria: No Exclusion Criteria Past Medical History Past Medical History CARDIAC: Negative Congestive Heart Failure RESPIRATORY: Positive Asthma; Negative Chronic Obstructive Pulmonary Disease (COPD) GENITOURINARY: Negative Renal Disease ENDOCRINE: Positive Diabetes Mellitus Type 2; Negative Diabetes Mellitus Type 1 PSYCHO/SOCIAL: Positive Schizophrenia Social History SMOKING STATUS: Smoking status: Former smoker LIVES WITH: Lives With: Family Patient Portal Questionaires Social History Tobacco History Smoking Status: Former smoker Domestic Abuse History Do You Feel Safe at Home: Yes Review of Systems Report any current symptoms Only answer those that you have currently: Past Medical History Past Medical History Have you ever been diagnosed with any of the following: Cardiology Problems Congestive Heart Failure: No Respiratory Problems Chronic Obstructive Pulmonary Disease (COPD): No Asthma: Yes Genital/Urinary Problems Renal Disease: No Endocrine Problems Diabetes Mellitus Type 1: No Diabetes Mellitus Type 2: Yes Psychologic Problems Schizophrenia: Yes History of Present Illness HPI Narrative Mr. Esteban Del Real is a 38 year old male with past medical history of schizophrenia, and insulin dependant type 2 diabetes mellitus who presents to the [facility]. 06/22/24 : Patient f/u for insulin dependent mellitus [10.6] and schizophrenia. His fasting blood glucose ranged from 86-205 and 2 hour post-prandial ranged f rom 95-185. He denies any hypoglycemic symptoms, SOB, chest pain, dizziness, weight loss/gain, urinary symptoms or change in bowel habits. His meds were refilled and lancets refilled. F/U in 3 months. 04/28/24: The patient is here for f/u on his DM2 management. He brought his BS log and revealed BS between 90-200. He reported doing well and denied any neutroglycopenic symptoms, his tiredness has improved, denies any urinary or bowel habit changes. His Ozempic was increased to 2mg weekly, metformin increased to 1000mg ER BID and insulin decreased to 15U glarzine at night. His lancets were refilled. F/u in 8 weeks. 03/17/2024: The patient is here for f/u on his DM2 management. His blood sugar has been in the range of 140-250. He denied any neuroglycopenic symptoms, but admitted feeling tired and increased urinary frequency, but no urgency or burning. He was explained this could have been because of use of Jardiance. He was recommended to take his BS at least 3 times a day and maintain a log. We will cut down on his glargine to 25 units nightly and increase the dose of Ozempic from 0.5 to 1mg. 03/03/2024: The patient presented for f/u for his DM2 management. He reported doing well. He is compliant with his medications and takes his BS in the evening which has been in the range of 200's, occasionally in 300's. His A1c level has improved from 11.0 to 10.6. His C-Peptide level is 4.3 and liver enzymes are still elevated mildly. His FBS is 264 which was 308 before. His Metformin ER was escalated to 500mg twice daily and added on Ozempic 0.5mg weekly. Lybre 2 ordered. He denied any fever, chills, nausea, vomiting, headache, chest pain, SOB, abdominal pain, or any changes in bowel or bladder habit. Patient was recommended to f/u in 2 weeks. 02/04/2024: The patient presented for the regular follow up on his DM2 control. He reported taking his BS everyday in the evening, and has been in 200's to 300's. He is not aware of his previous A1c level. He was also requesting to switch his insulin to oral form if possible. He was started on Jardiance 25mg daily and ordered refill for lancet. Labs were ordered for CMP, A1c and c-peptide, and was recommended to f/u in 2 weeks. He denied any fever, chills, nausea, vomiting, headache, chest pain, SOB, abdominal pain, or any changes in bowel or bladder habit. 09/13/2024: Presented for requesting clearance for a dental surgical extraction of a maxillary upper molar. Patient notes he has been experiencing pain at the site of the infected molar which needs to be extracted as per patient's dentist who is requesting clearance for the procedure. Patient noted his started amoxicillin approximately 1 week prior which has helped reduce his pain significantly. Patient's vitals WNL. Patient endorses medication compliance with insulin regimen for IDDM and olanzapine for Schizophrenia. 09/21/2024 Patient reports good compliance with his insulin and psychiatric medications. His blood sugars at home are between 180s?230s. Patient on insulin glargine 15 units at bedtime. Will order an HbA1c and schedule a telehealth appointment with patient next week. Will titrate his insulin glargine based on HbA1c results. 01/04/2025 Patient reports compliance with his psychiatric medication as well as insulin. His fasting blood glucose for the past month between 108 and 157. Will discontinue insulin Basaglar 15 units and start on insulin degludec 20 units at bedtime. HbA1c from September 2024 6.5%. For the past week patient reported 2 episodes of vomiting unrelated to consumption of food. Described as liquid, no hematemesis, no bile, no coffee- ground vomit. Patient was on Ozempic for the past 5 months and this is the first reported side effect. Will hold Ozempic for 1 week to see if symptoms improve. Will consider decreasing dose if vomiting is due to Ozempic Will follow-up with patient 2 months with repeat CBC, BMP and HbA1c. 01/11/2025 Telemedicine follow-up: Since last visit patient's Ozempic was held due to GI side effects of nausea and vomiting. Patient now reports no further episodes of nausea or vomiting. Will discontinue Ozempic and start patient on Mounjaro 2.5 mg SC weekly. Will see patient in next 2 months with repeat labs. 03/08/2025 Patient endorses complete resolution of GI symptoms [vomiting and nausea] since discontinuation of Ozempic. He has not been able to pick up driver Mounjaro from his pharmacy due to it requiring prior authorization. Will send prior authorization. Patient needs refills on test strips on lancets. Will send to pharmacy He has not been able to get his routine labs done as yet. Will schedule for a phone appointment next week to review CBC, BMP and HbA1c. Regular in office visit in 1 month. 05/05/2025 Telemedicine follow up: On 01/04/2025 patient had to discontinue Ozempic due to adverse GI side effects of persistent nausea and vomiting. After 1 week his symptoms completely subsided. He was prescribed a 1 month course of Tirzepitide 2.5mg and tolerated well without any side effects. Due to his previous adverse side effects from ozempic we recommend he continues on Tirzepitide. We will Titrate his dose every month until he reaches the maximally tolerated dose. Patient endorses sometimes he feels sad, but he does activites to redirect his thoughts. He is also actively looking for a job. His medication olanzapine and metformin were refilled. 03/08/2025 : CBC within normal limits, Renal panel within normal limits. 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 HbA1c from -Sep 2024 6.5% - Oct 2024 5.8% - February 2025 6.8% Patient endorses complete resolution of GI symptoms [vomiting and nausea] since discontinuation of Ozempic. He has not been able to pick up driver Mounjaro from his pharmacy due to it requiring prior authorization. Prior authorization was denied. Will re-send prior authorization. 03/08/2025 : CBC within normal limits, Renal panel within normal limits. Hba1c 6.8% [ 5.8% on 11/09/24] Plan: Plan: ? Continue Insulin degludec 20 units at bedtime ? Continue metformin 1 g p.o. twice daily ? Continue empagliflozin 25 Mg p.o. daily - Resent Mounjaro 5Mg SC weekly to pharmacy and prior authorization. ? Follow-up appointment in office in 1 month (2) Schizophrenia: Status: Chronic Qualifiers: Schizophrenia type: undifferentiated schizophrenia Qualified Code(s): F20.3 - Undifferentiated schizophrenia Assessment & Plan: Patient reports that he sometimes has depressive symptoms, however he has someone he can talk to. Denies any suicidal or homicidal ideations. Patient had a job interview at [employer] but was unsuccessful. Continue to encourage patient to apply for more jobs. Plan: Plan: ? Continue sertraline 50 Mg p.o. daily ? Continue olanzapine 20 Mg p.o. every afternoon ? If any suicidal or homicidal ideations or feelings to hurt oneself or others, immediately present to the emergency department. Plan Plan of care discussed with Attending Dr. Timothy Chilel MD PGY 2 Additional Assessment Attending note: I, Sai Aguirre MD, attest that I was physically present for the fa[place] portions of the service completed via telehealth, and I reviewed and discussed the case with the resident and agree with the resident's plans of care as documented above. Sai Aguirre MD Physician Billing Established Patient Established Patient: E/M Level 2-CPT 47618 Office Procedures [facility] Level of Care Nursing/Assessment Patient Status: Established Patient Nursing Assessment/Reassessment: Medication Reconciliation and Update PMH in EMR Coordination of Care: Complex Care and Chronic Disease 1-5, Consent,records obtained, informed consent, Education Simp Pt/Fam and Staff clarify orders Established Patient Charge Established Patient Point Assignment: 70 Telehealth Telemed Phone/Video with patient at home & ,[place],LANDSCAPE ACCOUNT MANAGER: Yes
== END 2025-05-05 11:42 | disposition home or self-care (01) ==
LOC: HODAHC 10:17
PROVIDERS: Supervising Provider Internal Medicine
DX: E11.9 Type 2 diabetes mellitus without complications (principal); Z79.4 Long term (current) use of insulin; F20.3 Undifferentiated schizophrenia
CPT/HCPCS: 99212; G0463